=== PATIENT | female | born 1990 | race Caucasian/White ===

== ENCOUNTER → 2017-03-08 | Outpatient (CLI) | payer MEDICAID ==
--- NOTE | 2017-03-08 16:58 | RADIOLOGY REPORT (SQ) ---
EXAM DESCRIPTION: OS CALCIS/HEEL LEFT COMPLETED DATE/TIME: 03/08/2017 4:30 pm REASON FOR STUDY: PAIN IN LEFT FOOT M79.672 PAIN IN LEFT FOOT COMPARISON: None. NUMBER OF VIEWS: Two views. TECHNIQUE: Plantar and oblique radiographic images acquired of the left calcaneous. LIMITATIONS: None. FINDINGS: MINERALIZATION: Normal. BONES: No acute fracture or dislocation. No worrisome bone lesions. JOINTS: No effusions. SOFT TISSUES: No soft tissue swelling. No foreign body. OTHER: No other significant finding. IMPRESSION: NEGATIVE STUDY OF THE LEFT CALCANEOUS. NO RADIOGRAPHIC EVIDENCE OF ACUTE INJURY. TECHNICAL DOCUMENTATION: JOB ID: [id number] [employer]- All Rights Reserved
== END ==
LOC: OD 16:14
PROVIDERS: ATTEND Nurse Practitioner Acute Care
DX: M79.672 Pain in left foot (principal)

== ENCOUNTER 2017-10-30 15:20 | Emergency (ER) | payer MEDICAID ==
[2017-10-30] MEDS ORDERED: RINGERS SOLUTION,LACTATED 1,000 ML IV ONE (16:32)
--- NOTE | 2017-10-30 16:34 | ER Document Report ---
ED Medical Screen (RME) - General Chief Complaint: Dizziness Stated Complaint: NAUSEA Time Seen by Provider: 10/30/17 16:31 Mode of Arrival: Ambulatory Information source: Patient Notes: This is a 27-year-old female who presents to the emergency room with nauseousness, shakiness, sense of disequilibrium. She states she has a hard time focusing. She denies any focal arm weakness. Patient states she awoke with symptoms. TRAVEL OUTSIDE OF THE [place] IN LAST 30 DAYS: No - Related Data Allergies/Adverse Reactions: No Known Allergies Allergy (Verified 10/30/17 15:28) Past Medical History - Social History Chew tobacco use (# tins/day): No Frequency of alcohol use: Rare Drug Abuse: None Renal/ Medical History: Denies: Hx Peritoneal Dialysis Past Surgical History: Reports: Hx Oral Surgery, Hx Tubal Ligation - Immunizations Immunizations up to date: Yes Hx Diphtheria, Pertussis, Tetanus Vaccination: No Physical Exam - Vital signs Vitals: Temp Pulse Resp BP Pulse Ox 98.1 F 89 22 H 130/92 H 100 10/30/17 15:47 10/30/17 15:47 10/30/17 15:47 10/30/17 15:47 10/30/17 15:47 Course - Vital Signs Vital signs: Temp Pulse Resp BP Pulse Ox 98.1 F 89 22 H 130/92 H 100 10/30/17 15:47 10/30/17 15:47 10/30/17 15:47 10/30/17 15:47 10/30/17 15:47
[2017-10-30 18:23] LABS: ABSOLUTE BASOPHILS # (AUTO) 0.1 10^3/uL (0.0-0.2); ABSOLUTE EOSINOPHILS # (AUTO) 0.1 10^3/uL (0.0-0.6); ABSOLUTE LYMPHOCYTES (AUTO) 2.5 10^3/uL (0.5-4.7); ABSOLUTE MONOCYTES (AUTO) 0.3 10^3/uL (0.1-1.4); ABSOLUTE NEUT (AUTO) 7.3 10^3/uL (1.7-8.2); BASOPHILS % (AUTO) 0.8 % (0-2); HEMATOCRIT 38.2 % (36.0-47.0); HEMOGLOBIN 13.3 g/dL (12.0-15.5); LYMPHOCYTES % (AUTO) 24.4 % (13-45); MEAN CORPUSCULAR HEMOGLOBIN 29.5 pg (27.0-33.4); MEAN CORPUSCULAR HGB CONC 34.9 g/dL (32.0-36.0); MEAN CORPUSCULAR VOLUME 84 fl (80-97); MONOCYTES % (AUTO) 3.1 % (3-13); PLATELET COUNT 316 10^3/uL (150-450); RED BLOOD COUNT 4.53 10^6/uL (3.72-5.28); RED CELL DISTRIBUTION WIDTH 13.6 % (11.5-14.0); SEGMENTED NEUTROPHILS % (AUTO) 70.7 % (42-78); TOTAL CELLS COUNTED % (AUTO) 100 %; WHITE BLOOD COUNT 10.3 10^3/uL (4.0-10.5)
[2017-10-30 18:27] LABS: APPEARANCE,URINE CLEAR; BILIRUBIN,URINE NEGATIVE (NEGATIVE); COLOR,URINE YELLOW; GLUCOSE, URINE NEGATIVE (NEGATIVE); KETONES,URINE NEGATIVE (NEGATIVE); LEUKOCYTE ESTERASE,URINE TRACE (NEGATIVE); NITRITE,URINE NEGATIVE (NEGATIVE); PROTEIN,URINE NEGATIVE (NEGATIVE); URINE SPECIFIC GRAVITY 1.009; UROBILINOGEN,URINE NEGATIVE mg/dL (<2.0)
[2017-10-30 18:43] LABS: ALANINE AMINOTRANSFERASE 21 U/L (9-52); ALBUMIN 4.7 g/dL (3.5-5.0); ALKALINE PHOSPHATASE 50 U/L (38-126); ANION GAP 11 (5-19); ASPARTATE AMINO TRANSFERASE 17 U/L (14-36); BILIRUBIN,DIRECT 0.5 mg/dL (0.0-0.4); BILIRUBIN,TOTAL 0.5 mg/dL (0.2-1.3); BLOOD UREA NITROGEN 9 mg/dL (7-20); CALCIUM 9.2 mg/dL (8.4-10.2); CARBON DIOXIDE 24 mmol/L (22-30); CHLORIDE 106 mmol/L (98-107); GLUCOSE 90 mg/dL (75-110); POTASSIUM 3.8 mmol/L (3.6-5.0); SODIUM 140.7 mmol/L (137-145)
[2017-10-30] MEDS ORDERED: ONDANSETRON HCL INJ/PF 4 MG/2 ML SDV IV ONE (19:12)
[2017-10-30] MEDS ORDERED: KETOROLAC TROMETHAMINE INJ/PF 30 MG/1 ML SDV IV ONE ×2 (19:12→21:40)
[2017-10-30] MEDS ORDERED: MECLIZINE HCL 25 MG TABLET PO ONE (19:12)
--- NOTE | 2017-10-30 19:14 | ER Document Report ---
ED General - General Chief Complaint: Dizziness Stated Complaint: NAUSEA Time Seen by Provider: 10/30/17 16:31 Mode of Arrival: Ambulatory Notes: Patient is a 27 year old female that comes to the ED for chief complaint of feeling nauseated, feeling lightheaded, and feeling shaky. Symptoms started this morning, got worse while she was standing at work, she states that when she gets up she feels slightly dizzy, she sees floaters, she states the edges of her vision feels blurry intermittently. She denies vomiting, fever, she states she is starting to develop a headache as well. She denies neck pain, focal numbness or weakness, shortness of breath, chest pain. She takes no daily medications except control. She denies any medical history. TRAVEL OUTSIDE OF THE [place] IN LAST 30 DAYS: No - Related Data Allergies/Adverse Reactions: No Known Allergies Allergy (Verified 10/30/17 15:28) Past Medical History - General Information source: Patient - Social History Smoking Status: Current Every Day Smoker Chew tobacco use (# tins/day): No Frequency of alcohol use: Rare Drug Abuse: None Lives with: Family Family History: Reviewed & Not Pertinent Patient has suicidal ideation: No Patient has homicidal ideation: No Neurological Medical History: Reports: Hx Migraine Renal/ Medical History: Denies: Hx Peritoneal Dialysis Past Surgical History: Reports: Hx Oral Surgery, Hx Tonsillectomy, Hx Tubal Ligation - Immunizations Immunizations up to date: Yes Hx Diphtheria, Pertussis, Tetanus Vaccination: No Review of Systems - Review of Systems Constitutional: See HPI EENT: No symptoms reported Cardiovascular: No symptoms reported Respiratory: No symptoms reported Gastrointestinal: See HPI Genitourinary: No symptoms reported Female Genitourinary: No symptoms reported Musculoskeletal: No symptoms reported Skin: No symptoms reported Hematologic/Lymphatic: No symptoms reported Neurological/Psychological: See HPI Physical Exam - Vital signs Vitals: Temp Pulse Resp BP Pulse Ox 98.1 F 89 22 H 130/92 H 100 10/30/17 15:47 10/30/17 15:47 10/30/17 15:47 10/30/17 15:47 10/30/17 15:47 Interpretation: Normal - General General appearance: Appears well, Alert In distress: None - HEENT Head: Normocephalic, Atraumatic Eyes: Normal Conjunctiva: Normal Extraocular movements intact: Yes Eyelashes: Normal Pupils: PERRL Sinus: Normal Nasal: Normal Mouth/Lips: Normal Mucous membranes: Normal Pharynx: Normal Neck: Normal - Respiratory Respiratory status: No respiratory distress Chest status: Nontender Breath sounds: Normal. No: Decreased air movement, Wheezing Chest palpation: Normal - Cardiovascular Rhythm: Regular. No: Tachycardia Heart sounds: Normal auscultation, S1 appreciated, S2 appreciated Murmur: No - Abdominal Inspection: Normal Distension: No distension Bowel sounds: Normal Tenderness: Nontender. No: Tender, Guarding - Back Back: Normal, Nontender. No: Tender, CVA tenderness - Extremities General upper extremity: Normal inspection, Nontender, Normal strength, Normal temperature General lower extremity: Normal inspection, Nontender, Normal strength, Normal temperature. No: Edema - Neurological Neuro grossly intact: Yes Cognition: Normal Orientation: AAOx4 [place] Coma Scale Eye Opening: Spontaneous [place] Coma Scale Verbal: Oriented [place] Coma Scale Motor: Obeys Commands [place] Coma Scale Total: 15 Speech: Normal Cranial nerves: Normal Cerebellar coordination: Normal Motor strength normal: LUE, RUE, LLE, RLE Additional motor exam normals: Equal cage loader Sensory: Normal - Psychological Associated symptoms: Normal affect, Normal mood - Skin Skin Temperature: Warm Skin Moisture: Dry Skin Color: Normal Course - Re-evaluation Re-evalutation: Reviewed workup performed in triage, this is unremarkable including CBC, chemistry, urine. Negative test. Patient's description of her symptoms are suggestive of an aura leading up to a migraine. Patient has now developed a mild headache which she states is worsening. She does not appear to be in any distress. No vomiting, no neurological deficits. Patient states she wants to drive home, will begin with nonsedating treatments. On reexamination patient states that she now has a full-blown throbbing headache on the right side behind her right eye. She states it feels like a migraine and she has had migraines several times in the past. She now agrees to treatments including sedating medication. Patient given Reglan, Benadryl, Toradol, dexamethasone. On reevaluation patient's headache is gone, she is smiling, grateful, asking to go home. Mother came and picked her up. Provided with medications, discussed follow-up, return precautions. Patient states satisfaction and agreement. - Vital Signs Vital signs: Temp Pulse Resp BP Pulse Ox 98.3 F 66 16 116/74 99 10/30/17 20:30 10/30/17 23:58 10/30/17 23:58 10/30/17 23:58 10/30/17 23:58 - Laboratory Result Diagrams: 10/30/17 18:00 10/30/17 18:00 Laboratory results interpreted by me: 10/30/17 10/30/17 18:00 18:00 Direct Bilirubin 0.5 H Ur Leukocyte Esterase TRACE H Discharge - Discharge Clinical Impression: Headache Qualifiers: Headache type: unspecified Headache chronicity pattern: acute headache Intractability: not intractable Qualified Code(s): R51 - Headache Condition: Stable Disposition: HOME, SELF-CARE Additional Instructions: Your symptoms and response to treatment are consistent with a migraine. The laboratory workup performed today was normal. Take medication as prescribed if needed, follow-up with primary care for additional evaluation and management. Return for any concerning or worsening symptoms including returned or severe headache, vomiting, fever, or any other concerning or worsening symptoms. Prescriptions: Butalb/Acetaminophen/Caffeine [Fioricet (50-325-40 mg) Tablet] 1 tab PO Q4HP PRN #30 tab PRN Reason: Forms: Return to Work
[2017-10-30] MEDS ORDERED: METOCLOPRAMIDE HCL INJ/PF 10 MG/2 ML SDV IV ONE (21:40)
[2017-10-30] MEDS ORDERED: DIPHENHYDRAMINE HCL 50 MG/ML VIAL IV ONE (21:40)
[2017-10-30] MEDS ORDERED: DEXAMETHASONE SOD PHOS INJ 10 MG/1 ML VIAL IV ONE (22:06)
[2017-10-30] MEDS ORDERED: MORPHINE SULFATE 10 MG/ML INJ IV ONE (22:06)
[2017-10-30 23:58] VITALS: BP 116/74
== END 2017-10-30 23:58 | disposition home or self-care (01) ==
LOC: ER 15:20
DX: R42 Dizziness and giddiness (principal); R11.0 Nausea; F17.200 Nicotine dependence, unspecified, uncomplicated; Z98.51 Tubal ligation status
CPT/HCPCS: 96376; 99284; 96361; 96374; 96375; 36415; 84702; 85025; 80053; 81001; J1200; J1885; J2765; J2405; J7120; J1100

== ENCOUNTER 2017-11-06 03:54 | Emergency (ER) | payer MEDICAID ==
--- NOTE | 2017-11-06 06:41 | ER Document Report ---
ED Extremity Problem, Lower - General Chief Complaint: Knee Injury Stated Complaint: FALL / RT KNEE PAIN Time Seen by Provider: 11/06/17 06:34 Notes: Patient is a 27-year-old female presents with right knee pain after she fell from standing and landed directly on her knee. She denies numbness, tingling, open wound or any other injuries. TRAVEL OUTSIDE OF THE [place] IN LAST 30 DAYS: No - Related Data Allergies/Adverse Reactions: No Known Allergies Allergy (Verified 10/30/17 15:28) Past Medical History - General Information source: Patient - Social History Smoking Status: Unknown if Ever Smoked Family History: Reviewed & Not Pertinent Neurological Medical History: Reports: Hx Migraine Renal/ Medical History: Denies: Hx Peritoneal Dialysis Past Surgical History: Reports: Hx Oral Surgery, Hx Tonsillectomy, Hx Tubal Ligation - Immunizations Immunizations up to date: Yes Hx Diphtheria, Pertussis, Tetanus Vaccination: No Review of Systems - Review of Systems Notes: REVIEW OF SYSTEMS: CONSTITUTIONAL: -fevers, -chills MUSCULOSKELETAL: +right knee pain, -back pain, -neck pain SKIN: -rash or skin lesions. HEMATOLOGIC: -easy bruising or bleeding. NEUROLOGICAL: -altered mental status or loss of consciousness, -headache, - neurologic symptoms ALL OTHER SYSTEMS REVIEWED AND NEGATIVE. Physical Exam - Vital signs Vitals: Temp Pulse Resp BP Pulse Ox 97.9 F 95 20 126/89 H 98 11/06/17 04:29 11/06/17 04:29 11/06/17 04:29 11/06/17 04:29 11/06/17 04:29 - Notes Notes: PHYSICAL EXAMINATION: GENERAL: Well-appearing, well-nourished and in no acute distress. HEAD: Atraumatic, normocephalic. EYES: Pupils equal round and reactive to light, extraocular movements intact, sclera anicteric, conjunctiva are normal. ENT: nares patent, oropharynx clear without exudates. Moist mucous membranes. NECK: Normal range of motion, supple without lymphadenopathy LUNGS: Breath sounds clear to auscultation bilaterally and equal. No wheezes rales or rhonchi. HEART: Regular rate and rhythm without murmurs ABDOMEN: Soft, nontender, normoactive bowel sounds. No guarding, no rebound. No masses appreciated. EXTREMITIES: Tenderness and swelling of right anterior knee. Able to raise leg off bed. Normal range of motion, no pitting or edema. No cyanosis. NEUROLOGICAL: Cranial nerves grossly intact. Normal speech, normal gait. Normal sensory and motor exams. PSYCH: Normal mood, normal affect. SKIN: Warm, Dry, normal turgor, no rashes or lesions noted. Course - Re-evaluation Re-evalutation: No acute fractures on x-ray and no evidence of quadricep tendon or patellar tendon injury. Instructed her about contusion management. - Vital Signs Vital signs: Temp Pulse Resp BP Pulse Ox 97.9 F 95 20 126/89 H 98 11/06/17 04:29 11/06/17 04:29 11/06/17 04:29 11/06/17 04:29 11/06/17 04:29 - Diagnostic Test Radiology reviewed: Image reviewed, Reports reviewed Radiology results interpreted by me: Right knee x-ray: NAD Discharge - Discharge Clinical Impression: Contusion of right knee Qualifiers: Encounter type: initial encounter Qualified Code(s): S80.01XA - Contusion of right knee, initial encounter Condition: Stable Disposition: HOME, SELF-CARE Additional Instructions: Contusion Your injury has resulted in a contusion -- a crushing of the deep tissues. No injury to important structures was detected during the physician's exam. Contusions vary in the amount of pain they cause, and in the length of time required for healing. Typically, the area will become bruised, and will remain painful to touch for two or three weeks. However, most patients are back to working and playing within a few days. After the initial period of rest and cold-packs, your symptoms (together with the doctor's recommendations) will determine how rapidly you can get back to full activity. Usually this means "do what feels okay, but don't do things that hurt." If re-examination was recommended, it's important to follow up as instructed. Call the doctor or return any time if pain increases, if swelling becomes severe, if you develop numbness or weakness in an injured extremity, or if any other alarming symptoms occur. Forms: Elevated Blood Pressure Referrals: MAIKOL SANTORO MD [Primary Care Provider] - Follow up as needed
--- NOTE | 2017-11-06 07:03 | RADIOLOGY REPORT (SQ) ---
EXAM DESCRIPTION: KNEE RIGHT 4 VIEWS CLINICAL HISTORY: 27 years, Female, trauma COMPARISON: None. NUMBER OF VIEWS: 4 Findings: Bones, joints, and soft tissues of KNEE RIGHT 4 VIEWS appear intact. No significant effusion. IMPRESSION: No acute findings.
[2017-11-06] MEDS ORDERED: IBUPROFEN 600 MG TABLET PO ONE (07:07)
[2017-11-06 07:56] VITALS: BP 116/74
== END 2017-11-06 07:57 | disposition home or self-care (01) ==
LOC: ER 03:54
DX: S80.01XA Contusion of right knee, initial encounter (principal); M25.561 Pain in right knee; W19.XXXA Unspecified fall, initial encounter
CPT/HCPCS: 99283; 73564; J3490

== ENCOUNTER → 2017-12-28 | Outpatient (CLI) | payer MEDICAID ==
--- NOTE | 2017-12-28 12:15 | WOMENS IMAGING REPORT ---
EXAM DESCRIPTION: U/S BREAST UNILATERAL, COMPL COMPLETED DATE/TIME: 12/28/2017 10:55 am REASON FOR STUDY: MASTODYNIA; N64.4 N64.4 MASTODYNIA COMPARISON: None. TECHNIQUE: Real-time and static grayscale imaging performed of the left breast targeted to the area of clinical/mammographic concern. Selected color Doppler images recorded. LIMITATIONS: None. FINDINGS: MASS: No mass identified. Normal glandular tissue. OTHER: No other significant finding. IMPRESSION: No suspicious findings detected by ultrasound. BIRAD: 1 Negative. RECOMMENDATION: RECOMMENDED FOLLOW-UP: Follow-up as clinically indicated. COMMENT: The [employer] (ACR) has developed recommendations for screening MRI of the breasts in certain patient populations, to be used in conjunction with mammography. Breast MRI s urveillance may be appropriate for women with more than 20% lifetime risk of developing breast cancer as determined by genetic testing, significant family history of the disease, or history of mantle r adiation for Hodgkins Disease. ACR Practice Guidelines 2008. TECHNICAL DOCUMENTATION: JOB ID: [id number] [employer]- All Rights Reserved Reading location - IP/workstation name: [facility]-REPLACED BY [facility]
== END ==
LOC: WI 09:59
PROVIDERS: ATTEND Physician Assistant
DX: N64.4 Mastodynia (principal)
CPT/HCPCS: 76641